=== PATIENT | male | born 1970 | race Caucasian/White ===

== ENCOUNTER 2016-10-16 09:26 | Inpatient (IN) | payer BC, OTHER ==
[~2016-10-16] VITALS: Ht 182.9 cm; Wt 82.7 kg
[2016-10-16] MEDS ORDERED: CHL25 PO (09:41)
[2016-10-16] MEDS ORDERED: ATOR10TA84 PO (09:41)
[2016-10-16] MEDS ORDERED: AMLO-511 PO (09:41)
[2016-10-16] MEDS ORDERED: AZIT250T6 PO (09:41)
[2016-10-16] MEDS ORDERED: ABAC1TAB15 PO (09:41)
[2016-10-16] MEDS ORDERED: FLUC150T66 PO (09:41)
[2016-10-16] MEDS ORDERED: ACETAMINOPHEN 500 MG TABLET PO ONE (10:30)
[2016-10-16 10:32] LABS: APPEARANCE,URINE CLEAR (CLEAR); GLUCOSE, URINE (UA) NEGATIVE (NEGATIVE); KETONES,URINE NEGATIVE (NEGATIVE); LEUKOCYTE ESTERASE ,URINE NEGATIVE (NEGATIVE); OCCULT BLOOD,URINE NEGATIVE (NEGATIVE); PROTEIN,URINE NEGATIVE (NEGATIVE)
[2016-10-16 10:33] LABS: ADD UA MICROSCOPIC NO
[2016-10-16 10:52] LABS: BASOPHILS # (AUTO) 0.02 K/uL (0.00-0.20); BASOPHILS % (AUTO) 0.2 % (0.0-2.0); EOSINOPHILS # (AUTO) 0.02 K/uL (0.00-0.70); EOSINOPHILS % (AUTO) 0.17 % (1.0-6.0); HEMATOCRIT 49.2 % (41-53); HEMOGLOBIN 16.3 g/dL (13.5-17.5); LYMPHOCYTES # (AUTO) 1.3 K/uL (1.0-4.8); LYMPHOCYTES % (AUTO) 11.5 % (22.0-44.0); MEAN CORPUSCULAR HEMOGLOBIN 31.4 pg (26.0-34.0); MEAN CORPUSCULAR HGB CONC 33.1 G/dL (31.0-37.0); MEAN CORPUSCULAR VOLUME 95 fL (80-100); MONOCYTES % (AUTO) 8.8 % (2.0-9.0); NEUTROPHILS # (AUTO) 8.8 K/uL (1.8-7.7); NEUTROPHILS % (AUTO) 79.4 % (40.0-70.0); PLATELET COUNT (AUTO) 248 K/uL (150-450); RED BLOOD CELL COUNT(AUTO) 5.17 MIL/uL (4.50-5.90); RED CELL DISTRIBUTION WIDTH 12.8 % (11.5-14.5); WHITE BLOOD COUNT (AUTO) 11.1 K/uL (4.5-11.0)
[2016-10-16 11:13] LABS: LACTIC ACID 1.3 mmol/L (0.4-2.0)
[2016-10-16 11:18] LABS: B-TYPE NATRIURETIC PEPTIDE < 5 pg/mL (0-100)
[2016-10-16 11:20] LABS: ALANINE AMINOTRANSFERASE 54 U/L (12-78); ALBUMIN 4.2 g/dL (3.4-5.0); ANION GAP 11 mmol/L (8-16); ASPARTATE AMINOTRANSFERASE 25 U/L (15-37); BILIRUBIN,TOTAL 0.6 mg/dL (0.1-1.0); CALCIUM, TOTAL 9.1 mg/dL (8.8-10.5); CARBON DIOXIDE 29 mmol/L (22-29); CHLORIDE 96 mmol/L (98-107); GLOMERULAR FILTR. RATE CALC > 60 mL/min (>60); SODIUM SERUM 136 mmol/L (136-145); TOTAL PROTEIN, SERUM 8.2 g/dL (6.4-8.2); UREA NITROGEN, BLOOD 18 mg/dL (7-18)
[2016-10-16 11:23] LABS: POTASSIUM 2.9 mmol/L (3.5-5.1)
[2016-10-16] MEDS ORDERED: IPRATROPIUM BROMIDE 0.5 MG/2.5 ML NEB SOLUTION NEB ONE (11:30)
[2016-10-16] MEDS ORDERED: ALBUTEROL SULFATE 2.5 MG/0.5 ML NEB SOLUTION NEB ONE (11:30)
[2016-10-16] MEDS ORDERED: POTASSIUM CHL 40 MEQ/D5-0.45NS 1,000 ML IV ONE (11:30)
[2016-10-16] MEDS ORDERED: LEVOFLOXACIN 500 MG TABLET PO ONE (12:00)
[2016-10-16] MEDS ORDERED: IOVERSOL 320 MG/ML 100 ML VIAL ONE (12:03)
[2016-10-16] MEDS ORDERED: SODIUM CHLORIDE 0.9% 100 ML ONE (12:03)
[2016-10-16] MEDS ORDERED: 0.9% SODIUM CHLORIDE 5 ML NEB SOLUTION NEB ONE (12:09)
[2016-10-16 12:23] LABS: INFLUENZA TYPE B NEGATIVE FOR TYPE B (NEGATIVE)
[2016-10-16] MEDS ORDERED: 0.9% SODIUM CHLORIDE 10 ML SYRINGE IVP PRN (13:30)
[2016-10-16] MEDS ORDERED: ACETAMINOPHEN 325 MG TABLET PO PRN (13:30)
[2016-10-16] MEDS ORDERED: MAGNESIUM HYDROXIDE SUSPENSION 30 ML UDCUP PO PRN (14:15)
[2016-10-16] MEDS ORDERED: ZOLPIDEM TARTRATE 5 MG TABLET PO PRN (14:15)
[2016-10-16] MEDS ORDERED: MORPHINE SULFATE 4 MG/ML SYRINGE IVP PRN (14:15)
[2016-10-16] MEDS ORDERED: IPRATROPIUM BROMIDE 0.5 MG/2.5 ML NEB SOLUTION NEB PRN (14:15)
[2016-10-16] MEDS ORDERED: BISACODYL 10 MG RECTAL RECTAL SUPPOSITORY PR PRN (14:15)
[2016-10-16] MEDS ORDERED: ONDANSETRON HCL 4 MG/2 ML VIAL IVP PRN (14:15)
[2016-10-16] MEDS ORDERED: ALBUTEROL SULFATE 2.5 MG/0.5 ML NEB SOLUTION NEB PRN (14:15)
[2016-10-16 14:42] VITALS: BP 122/71
[2016-10-16] MEDS: HEPARIN SODIUM,PORCINE 5,000 UNITS/ML VIAL SQ SCH ×2 (16:00→23:55)
[2016-10-16] MEDS: ACETAMINOPHEN 325 MG TABLET PO PRN ×2 (19:03→23:55)
[2016-10-16 20:10] VITALS: BP 112/51
[2016-10-16] MEDS: DOCUSATE SODIUM 100 MG CAPSULE PO SCH (20:41)
[2016-10-16 23:28] VITALS: BP 123/66
[2016-10-17] MEDS: ACETAMINOPHEN 325 MG TABLET PO PRN ×3 (05:56→14:27)
[2016-10-17 06:24] VITALS: BP 117/74
[2016-10-17 06:48] LABS: BASOPHILS % (AUTO) 0.3 % (0.0-2.0); EOSINOPHILS % (AUTO) 0 % (1.0-6.0); HEMATOCRIT 43.9 % (41-53); HEMOGLOBIN 15.3 g/dL (13.5-17.5); LYMPHOCYTES # (AUTO) 1.9 K/uL (1.0-4.8); LYMPHOCYTES % (AUTO) 13.9 % (22.0-44.0); MEAN CORPUSCULAR HEMOGLOBIN 32.3 pg (26.0-34.0); MEAN CORPUSCULAR HGB CONC 34.9 G/dL (31.0-37.0); MEAN CORPUSCULAR VOLUME 93 fL (80-100); MONOCYTES # (AUTO) 1.6 K/uL (0.1-1.0); NEUTROPHILS # (AUTO) 9.8 K/uL (1.8-7.7); NEUTROPHILS % (AUTO) 73.8 % (40.0-70.0); PLATELET COUNT (AUTO) 216 K/uL (150-450); RED BLOOD CELL COUNT(AUTO) 4.74 MIL/uL (4.50-5.90); RED CELL DISTRIBUTION WIDTH 12.5 % (11.5-14.5); WHITE BLOOD COUNT (AUTO) 13.3 K/uL (4.5-11.0)
[2016-10-17 07:04] LABS: ALANINE AMINOTRANSFERASE 37 U/L (12-78); ALBUMIN 3.7 g/dL (3.4-5.0); ANION GAP 7 mmol/L (8-16); ASPARTATE AMINOTRANSFERASE 18 U/L (15-37); BILIRUBIN,TOTAL 0.5 mg/dL (0.1-1.0); CALCIUM, TOTAL 8.5 mg/dL (8.8-10.5); CARBON DIOXIDE 29 mmol/L (22-29); CHLORIDE 95 mmol/L (98-107); CREATININE 1.02 mg/dL (0.60-1.30); GLOMERULAR FILTR. RATE CALC > 60 mL/min (>60); SODIUM SERUM 131 mmol/L (136-145); TOTAL PROTEIN, SERUM 7.4 g/dL (6.4-8.2); UREA NITROGEN, BLOOD 17 mg/dL (7-18)
[2016-10-17 07:14] LABS: POTASSIUM 2.6 mmol/L (3.5-5.1)
[2016-10-17 07:24] VITALS: BP 141/84
[2016-10-17] MEDS: AmLODIPine BESYLATE 5 MG TABLET PO SCH (08:55)
[2016-10-17] MEDS: ABACAVIR PO SCH (08:55)
[2016-10-17] MEDS: ATORVASTATIN CALCIUM 10 MG TABLET PO SCH (08:55)
[2016-10-17] MEDS: LAMIVUDINE PO SCH (08:55)
[2016-10-17] MEDS: CHLORTHALIDONE 25 MG TABLET PO SCH (08:55)
[2016-10-17] MEDS: DOLUTEGRAVIR PO SCH (08:55)
[2016-10-17] MEDS: HEPARIN SODIUM,PORCINE 5,000 UNITS/ML VIAL SQ SCH ×3 (08:56→23:19)
[2016-10-17] MEDS: DOCUSATE SODIUM 100 MG CAPSULE PO SCH ×2 (08:56→21:19)
[2016-10-17] MEDS: PANTOPRAZOLE SODIUM 40 MG/VIAL IVP SCH (08:56)
[2016-10-17 09:15] LABS: LYMPHS % FOR CD4 COUNT 20 %; WBC FOR CD4 COUNT 10.1 x10E3/uL (3.4-10.8)
[2016-10-17] MEDS ORDERED: SODIUM CHLORIDE 0.9% 1,000 ML IV ONE (09:26)
[2016-10-17] MEDS: PIPERACILLIN/TAZO 3.375 GM/D5W 50 ML IV SCH ×3 (09:28→21:19)
[2016-10-17] MEDS: POTASSIUM CHL 10 MEQ/WATER 50 ML IV PRN ×4 (10:44→14:53)
[2016-10-17 11:18] VITALS: BP 110/68
[2016-10-17 15:40] VITALS: BP 128/65
[2016-10-17] MEDS: HYDROCODONE/ACETAMINOPHEN 5-325 MG TABLET PO PRN ×2 (15:45→21:33)
[2016-10-17] MEDS: SODIUM CHLORIDE 0.9% 1,000 ML IV SCH (15:49)
[2016-10-17] MEDS: POTASSIUM CHLORIDE 20 MEQ ER TABLET PO PRN (19:34)
[2016-10-17 20:02] VITALS: BP 133/75
[2016-10-17] MEDS ORDERED: VANCOMYCIN HCL 1.5 GM in DEXTROSE 5%-WATER 250 ML IV ONE (23:00)
[2016-10-18] VITALS (7 sets, daily range): BP systolic 107–138; BP diastolic 62–83
[2016-10-18] MEDS: POTASSIUM CHLORIDE 20 MEQ ER TABLET PO PRN ×3 (00:33→16:58)
[2016-10-18] MEDS: ACYCLOVIR 800 MG in DEXTROSE 5%-WATER 150 ML IV SCH ×3 (01:22→20:17)
[2016-10-18] MEDS: SODIUM CHLORIDE 0.9% 1,000 ML IV SCH ×2 (01:23→15:58)
[2016-10-18] MEDS: CefTRIAXone SODIUM 2 GM in DEXTROSE 5%-WATER 50 ML IV SCH ×2 (02:36→15:54)
[2016-10-18] MEDS: ACETAMINOPHEN 325 MG TABLET PO PRN (05:03)
[2016-10-18 07:05] LABS: BASOPHILS % (AUTO) 0.2 % (0.0-2.0); EOSINOPHILS % (AUTO) 0 % (1.0-6.0); HEMATOCRIT 42.5 % (41-53); HEMOGLOBIN 14.9 g/dL (13.5-17.5); LYMPHOCYTES # (AUTO) 1.6 K/uL (1.0-4.8); LYMPHOCYTES % (AUTO) 11.3 % (22.0-44.0); MEAN CORPUSCULAR HEMOGLOBIN 32.5 pg (26.0-34.0); MEAN CORPUSCULAR VOLUME 93 fL (80-100); MONOCYTES # (AUTO) 1.5 K/uL (0.1-1.0); MONOCYTES % (AUTO) 10.5 % (2.0-9.0); PLATELET COUNT (AUTO) 185 K/uL (150-450); RED BLOOD CELL COUNT(AUTO) 4.57 MIL/uL (4.50-5.90); RED CELL DISTRIBUTION WIDTH 12.2 % (11.5-14.5); WHITE BLOOD COUNT (AUTO) 14.1 K/uL (4.5-11.0)
[2016-10-18 07:20] LABS: ALANINE AMINOTRANSFERASE 40 U/L (12-78); ALBUMIN 3.2 g/dL (3.4-5.0); ANION GAP 6 mmol/L (8-16); ASPARTATE AMINOTRANSFERASE 24 U/L (15-37); BILIRUBIN,TOTAL 0.4 mg/dL (0.1-1.0); CALCIUM, TOTAL 8.3 mg/dL (8.8-10.5); CARBON DIOXIDE 31 mmol/L (22-29); CHLORIDE 92 mmol/L (98-107); CREATININE 0.88 mg/dL (0.60-1.30); GLOMERULAR FILTR. RATE CALC > 60 mL/min (>60); SODIUM SERUM 129 mmol/L (136-145); UREA NITROGEN, BLOOD 10 mg/dL (7-18)
[2016-10-18] MEDS: HEPARIN SODIUM,PORCINE 5,000 UNITS/ML VIAL SQ SCH ×2 (08:44→16:58)
[2016-10-18] MEDS: VANCOMYCIN HCL 1.25 GM in DEXTROSE 5%-WATER 250 ML IV SCH ×3 (08:44→22:59)
[2016-10-18] MEDS: PANTOPRAZOLE SODIUM 40 MG/VIAL IVP SCH (08:45)
[2016-10-18] MEDS: DOCUSATE SODIUM 100 MG CAPSULE PO SCH ×2 (08:45→20:22)
[2016-10-18] MEDS: ATORVASTATIN CALCIUM 10 MG TABLET PO SCH ×2 (08:45→09:00)
[2016-10-18] MEDS: HYDROCODONE/ACETAMINOPHEN 5-325 MG TABLET PO PRN (08:45)
[2016-10-18] MEDS: AmLODIPine BESYLATE 5 MG TABLET PO SCH (08:45)
[2016-10-18] MEDS: LAMIVUDINE PO SCH (08:46)
[2016-10-18] MEDS: CHLORTHALIDONE 25 MG TABLET PO SCH (08:46)
[2016-10-18] MEDS: DOLUTEGRAVIR PO SCH (08:46)
[2016-10-18] MEDS: ABACAVIR PO SCH (08:46)
[2016-10-18] MEDS ORDERED: GADOBUTROL 1 MMOL/ML 10 ML VIAL IVP ONE (14:15)
[2016-10-19] MEDS: HEPARIN SODIUM,PORCINE 5,000 UNITS/ML VIAL SQ SCH ×3 (00:27→17:05)
[2016-10-19] MEDS: ACETAMINOPHEN 325 MG TABLET PO PRN (00:27)
[2016-10-19] MEDS: CefTRIAXone SODIUM 2 GM in DEXTROSE 5%-WATER 50 ML IV SCH ×2 (01:29→17:03)
[2016-10-19 01:31] LABS: ABSOLUTE CD4 COUNT 528 /uL (359-1519); PERCENT CD4 CELLS 26.4 % (30.8-58.5)
[2016-10-19] MEDS: ACYCLOVIR 800 MG in DEXTROSE 5%-WATER 150 ML IV SCH ×3 (02:45→17:58)
[2016-10-19 04:54] VITALS: BP 103/63
[2016-10-19 06:07] LABS: BASOPHILS # (AUTO) 0.03 K/uL (0.00-0.20); BASOPHILS % (AUTO) 0.4 % (0.0-2.0); EOSINOPHILS # (AUTO) 0.01 K/uL (0.00-0.70); EOSINOPHILS % (AUTO) 0.06 % (1.0-6.0); HEMATOCRIT 45.4 % (41-53); HEMOGLOBIN 14.9 g/dL (13.5-17.5); LYMPHOCYTES # (AUTO) 2.6 K/uL (1.0-4.8); LYMPHOCYTES % (AUTO) 29.5 % (22.0-44.0); MEAN CORPUSCULAR HEMOGLOBIN 31.6 pg (26.0-34.0); MEAN CORPUSCULAR HGB CONC 32.8 G/dL (31.0-37.0); MEAN CORPUSCULAR VOLUME 96 fL (80-100); MONOCYTES # (AUTO) 1.4 K/uL (0.1-1.0); MONOCYTES % (AUTO) 15.4 % (2.0-9.0); NEUTROPHILS # (AUTO) 4.8 K/uL (1.8-7.7); NEUTROPHILS % (AUTO) 54.6 % (40.0-70.0); PLATELET COUNT (AUTO) 221 K/uL (150-450); RED BLOOD CELL COUNT(AUTO) 4.71 MIL/uL (4.50-5.90); RED CELL DISTRIBUTION WIDTH 12.7 % (11.5-14.5); WHITE BLOOD COUNT (AUTO) 8.7 K/uL (4.5-11.0)
[2016-10-19 07:02] VITALS: BP 107/59
[2016-10-19 07:10] LABS: ALANINE AMINOTRANSFERASE 56 U/L (12-78); ALBUMIN 3.3 g/dL (3.4-5.0); ANION GAP 9 mmol/L (8-16); ASPARTATE AMINOTRANSFERASE 34 U/L (15-37); BILIRUBIN,TOTAL 0.3 mg/dL (0.1-1.0); CALCIUM, TOTAL 8.8 mg/dL (8.8-10.5); CARBON DIOXIDE 32 mmol/L (22-29); CHLORIDE 97 mmol/L (98-107); CREATININE 0.97 mg/dL (0.60-1.30); GLOMERULAR FILTR. RATE CALC > 60 mL/min (>60); POTASSIUM 3.4 mmol/L (3.5-5.1); SODIUM SERUM 138 mmol/L (136-145); TOTAL PROTEIN, SERUM 7.4 g/dL (6.4-8.2); UREA NITROGEN, BLOOD 10 mg/dL (7-18)
[2016-10-19] MEDS: AmLODIPine BESYLATE 5 MG TABLET PO SCH (09:00)
[2016-10-19] MEDS: CHLORTHALIDONE 25 MG TABLET PO SCH (09:08)
[2016-10-19] MEDS: DOLUTEGRAVIR PO SCH (09:08)
[2016-10-19] MEDS: ATORVASTATIN CALCIUM 10 MG TABLET PO SCH (09:08)
[2016-10-19] MEDS: DOCUSATE SODIUM 100 MG CAPSULE PO SCH ×2 (09:08→21:00)
[2016-10-19] MEDS: POTASSIUM CHLORIDE 20 MEQ ER TABLET PO PRN ×2 (09:08→15:22)
[2016-10-19] MEDS: LAMIVUDINE PO SCH (09:08)
[2016-10-19] MEDS: ABACAVIR PO SCH (09:08)
[2016-10-19] MEDS: PANTOPRAZOLE SODIUM 40 MG/VIAL IVP SCH (09:08)
[2016-10-19] MEDS: VANCOMYCIN HCL 1.25 GM in DEXTROSE 5%-WATER 250 ML IV SCH ×2 (09:09→19:52)
[2016-10-19 11:02] VITALS: BP 130/77
[2016-10-19 12:40] VITALS: BP 120/72
[2016-10-19] MEDS ORDERED: VANCOMYCIN HCL 1.25 GM in DEXTROSE 5%-WATER 250 ML IV ONE (13:00)
[2016-10-19 14:32] LABS: ORGANISM ID Not indicated.
[2016-10-19] MEDS: SODIUM CHLORIDE 0.9% 1,000 ML IV SCH ×2 (14:39→16:00)
[2016-10-19 17:13] VITALS: BP 135/64
[2016-10-19 20:05] VITALS: BP 115/67
[2016-10-20] MEDS: HEPARIN SODIUM,PORCINE 5,000 UNITS/ML VIAL SQ SCH ×3 (00:06→17:07)
[2016-10-20] MEDS: VANCOMYCIN HCL 1.25 GM in DEXTROSE 5%-WATER 250 ML IV SCH ×4 (00:07→23:43)
[2016-10-20 00:12] VITALS: BP 123/77
[2016-10-20] MEDS: ACYCLOVIR 800 MG in DEXTROSE 5%-WATER 150 ML IV SCH ×3 (02:22→17:19)
[2016-10-20] MEDS: CefTRIAXone SODIUM 2 GM in DEXTROSE 5%-WATER 50 ML IV SCH ×2 (03:38→13:51)
[2016-10-20 03:45] VITALS: BP 114/70
[2016-10-20 07:00] VITALS: BP 132/83
[2016-10-20 07:37] LABS: BASOPHILS # (AUTO) 0.04 K/uL (0.00-0.20); BASOPHILS % (AUTO) 0.5 % (0.0-2.0); EOSINOPHILS # (AUTO) 0.05 K/uL (0.00-0.70); EOSINOPHILS % (AUTO) 0.51 % (1.0-6.0); HEMATOCRIT 43.8 % (41-53); HEMOGLOBIN 14.5 g/dL (13.5-17.5); LYMPHOCYTES % (AUTO) 22.8 % (22.0-44.0); MEAN CORPUSCULAR HEMOGLOBIN 31.7 pg (26.0-34.0); MEAN CORPUSCULAR HGB CONC 33.2 G/dL (31.0-37.0); MEAN CORPUSCULAR VOLUME 96 fL (80-100); MONOCYTES % (AUTO) 10.6 % (2.0-9.0); NEUTROPHILS # (AUTO) 5.9 K/uL (1.8-7.7); NEUTROPHILS % (AUTO) 65.7 % (40.0-70.0); PLATELET COUNT (AUTO) 248 K/uL (150-450); RED BLOOD CELL COUNT(AUTO) 4.59 MIL/uL (4.50-5.90); RED CELL DISTRIBUTION WIDTH 12.9 % (11.5-14.5)
[2016-10-20 07:47] LABS: ALANINE AMINOTRANSFERASE 72 U/L (12-78); ALBUMIN 3.1 g/dL (3.4-5.0); ANION GAP 8 mmol/L (8-16); ASPARTATE AMINOTRANSFERASE 34 U/L (15-37); BILIRUBIN,TOTAL 0.3 mg/dL (0.1-1.0); CALCIUM, TOTAL 8.8 mg/dL (8.8-10.5); CARBON DIOXIDE 29 mmol/L (22-29); CHLORIDE 99 mmol/L (98-107); CREATININE 0.84 mg/dL (0.60-1.30); GLOMERULAR FILTR. RATE CALC > 60 mL/min (>60); POTASSIUM 3.4 mmol/L (3.5-5.1); SODIUM SERUM 136 mmol/L (136-145); TOTAL PROTEIN, SERUM 7.2 g/dL (6.4-8.2); UREA NITROGEN, BLOOD 10 mg/dL (7-18)
[2016-10-20] MEDS: CHLORTHALIDONE 25 MG TABLET PO SCH ×2 (09:00→09:25)
[2016-10-20] MEDS: ABACAVIR PO SCH (09:24)
[2016-10-20] MEDS: LAMIVUDINE PO SCH (09:24)
[2016-10-20] MEDS: PANTOPRAZOLE SODIUM 40 MG/VIAL IVP SCH (09:24)
[2016-10-20] MEDS: DOLUTEGRAVIR PO SCH (09:24)
[2016-10-20] MEDS: ATORVASTATIN CALCIUM 10 MG TABLET PO SCH (09:25)
[2016-10-20] MEDS: DOCUSATE SODIUM 100 MG CAPSULE PO SCH ×2 (09:25→21:00)
[2016-10-20] MEDS: AmLODIPine BESYLATE 5 MG TABLET PO SCH (09:25)
[2016-10-20 11:50] VITALS: BP 127/78
[2016-10-20] MEDS: SODIUM CHLORIDE 0.9% 1,000 ML IV SCH (13:29)
[2016-10-20 15:00] VITALS: BP 131/73
[2016-10-20] MEDS: POTASSIUM CHLORIDE 20 MEQ ER TABLET PO PRN (18:22)
[2016-10-20] MEDS: HYDROCODONE/ACETAMINOPHEN 5-325 MG TABLET PO PRN (19:08)
[2016-10-20 20:08] VITALS: BP 130/78
[2016-10-21 00:56] VITALS: BP 132/72
[2016-10-21] MEDS: ACYCLOVIR 800 MG in DEXTROSE 5%-WATER 150 ML IV SCH ×3 (00:59→18:19)
[2016-10-21] MEDS: HEPARIN SODIUM,PORCINE 5,000 UNITS/ML VIAL SQ SCH ×4 (00:59→23:52)
[2016-10-21] MEDS: CefTRIAXone SODIUM 2 GM in DEXTROSE 5%-WATER 50 ML IV SCH ×2 (02:25→15:00)
[2016-10-21] MEDS: HYDROCODONE/ACETAMINOPHEN 5-325 MG TABLET PO PRN ×2 (03:55→10:45)
[2016-10-21 06:05] LABS: BASOPHILS # (AUTO) 0.05 K/uL (0.00-0.20); BASOPHILS % (AUTO) 0.4 % (0.0-2.0); EOSINOPHILS # (AUTO) 0.06 K/uL (0.00-0.70); EOSINOPHILS % (AUTO) 0.52 % (1.0-6.0); HEMATOCRIT 42.6 % (41-53); HEMOGLOBIN 14.1 g/dL (13.5-17.5); LYMPHOCYTES # (AUTO) 1.6 K/uL (1.0-4.8); LYMPHOCYTES % (AUTO) 14.5 % (22.0-44.0); MEAN CORPUSCULAR HEMOGLOBIN 31.3 pg (26.0-34.0); MEAN CORPUSCULAR HGB CONC 33.1 G/dL (31.0-37.0); MEAN CORPUSCULAR VOLUME 95 fL (80-100); MONOCYTES # (AUTO) 1.2 K/uL (0.1-1.0); MONOCYTES % (AUTO) 10.4 % (2.0-9.0); NEUTROPHILS # (AUTO) 8.4 K/uL (1.8-7.7); NEUTROPHILS % (AUTO) 74.1 % (40.0-70.0); PLATELET COUNT (AUTO) 282 K/uL (150-450); RED CELL DISTRIBUTION WIDTH 12.6 % (11.5-14.5); WHITE BLOOD COUNT (AUTO) 11.3 K/uL (4.5-11.0)
[2016-10-21 06:28] LABS: ALANINE AMINOTRANSFERASE 80 U/L (12-78); ALBUMIN 3.2 g/dL (3.4-5.0); ANION GAP 6 mmol/L (8-16); ASPARTATE AMINOTRANSFERASE 33 U/L (15-37); BILIRUBIN,TOTAL 0.3 mg/dL (0.1-1.0); CALCIUM, TOTAL 8.6 mg/dL (8.8-10.5); CARBON DIOXIDE 29 mmol/L (22-29); CHLORIDE 98 mmol/L (98-107); CREATININE 0.99 mg/dL (0.60-1.30); GLOMERULAR FILTR. RATE CALC > 60 mL/min (>60); POTASSIUM 3.6 mmol/L (3.5-5.1); SODIUM SERUM 133 mmol/L (136-145); TOTAL PROTEIN, SERUM 7.2 g/dL (6.4-8.2)
[2016-10-21] MEDS: VANCOMYCIN HCL 1.25 GM in DEXTROSE 5%-WATER 250 ML IV SCH ×3 (06:58→23:55)
[2016-10-21 07:07] LABS: UREA NITROGEN, BLOOD 10 mg/dL (7-18)
[2016-10-21 08:00] VITALS: BP 118/74
[2016-10-21] MEDS: DOCUSATE SODIUM 100 MG CAPSULE PO SCH ×3 (09:00→20:01)
[2016-10-21] MEDS: LAMIVUDINE PO SCH (09:17)
[2016-10-21] MEDS: ATORVASTATIN CALCIUM 10 MG TABLET PO SCH (09:17)
[2016-10-21] MEDS: ABACAVIR PO SCH (09:17)
[2016-10-21] MEDS: DOLUTEGRAVIR PO SCH (09:17)
[2016-10-21] MEDS: AmLODIPine BESYLATE 5 MG TABLET PO SCH (09:18)
[2016-10-21] MEDS: PANTOPRAZOLE SODIUM 40 MG/VIAL IVP SCH (09:19)
[2016-10-21] MEDS: SODIUM CHLORIDE 0.9% 1,000 ML IV SCH (10:55)
[2016-10-21 11:01] VITALS: BP 138/74
[2016-10-21] MEDS: ACETAMINOPHEN 325 MG TABLET PO PRN ×3 (14:54→23:52)
[2016-10-21 15:00] VITALS: BP 142/73
[2016-10-21 16:23] VITALS: BP 132/58
[2016-10-21 20:00] VITALS: BP 117/61
[2016-10-22] VITALS (7 sets, daily range): BP systolic 123–138; BP diastolic 64–87
[2016-10-22] MEDS: SODIUM CHLORIDE 0.9% 1,000 ML IV SCH ×2 (00:05→14:00)
[2016-10-22] MEDS: ACYCLOVIR 800 MG in DEXTROSE 5%-WATER 150 ML IV SCH ×3 (02:08→17:54)
[2016-10-22] MEDS: CefTRIAXone SODIUM 2 GM in DEXTROSE 5%-WATER 50 ML IV SCH ×2 (03:10→14:03)
[2016-10-22 06:26] LABS: BASOPHILS % (AUTO) 0.4 % (0.0-2.0); EOSINOPHILS % (AUTO) 0.2 % (1.0-6.0); HEMATOCRIT 41.8 % (41-53); HEMOGLOBIN 14.4 g/dL (13.5-17.5); LYMPHOCYTES # (AUTO) 2.3 K/uL (1.0-4.8); LYMPHOCYTES % (AUTO) 16.2 % (22.0-44.0); MEAN CORPUSCULAR HEMOGLOBIN 32.2 pg (26.0-34.0); MEAN CORPUSCULAR HGB CONC 34.3 G/dL (31.0-37.0); MEAN CORPUSCULAR VOLUME 94 fL (80-100); MONOCYTES % (AUTO) 14.3 % (2.0-9.0); NEUTROPHILS # (AUTO) 9.7 K/uL (1.8-7.7); NEUTROPHILS % (AUTO) 68.9 % (40.0-70.0); PLATELET COUNT (AUTO) 299 K/uL (150-450); RED BLOOD CELL COUNT(AUTO) 4.45 MIL/uL (4.50-5.90); RED CELL DISTRIBUTION WIDTH 12.5 % (11.5-14.5)
[2016-10-22 06:32] LABS: PROTHROMBIN TIME 10.7 SEC (9.4-11.6)
[2016-10-22 06:50] LABS: ALANINE AMINOTRANSFERASE 84 U/L (12-78); ALBUMIN 3.2 g/dL (3.4-5.0); ANION GAP 3 mmol/L (8-16); ASPARTATE AMINOTRANSFERASE 33 U/L (15-37); BILIRUBIN,TOTAL 0.2 mg/dL (0.1-1.0); CALCIUM, TOTAL 8.9 mg/dL (8.8-10.5); CARBON DIOXIDE 28 mmol/L (22-29); CHLORIDE 98 mmol/L (98-107); CREATININE 1.14 mg/dL (0.60-1.30); GLOMERULAR FILTR. RATE CALC > 60 mL/min (>60); POTASSIUM 4.2 mmol/L (3.5-5.1); SODIUM SERUM 129 mmol/L (136-145); TOTAL PROTEIN, SERUM 7.6 g/dL (6.4-8.2); UREA NITROGEN, BLOOD 9 mg/dL (7-18)
[2016-10-22] MEDS: LAMIVUDINE PO SCH (08:06)
[2016-10-22] MEDS: ABACAVIR PO SCH (08:06)
[2016-10-22] MEDS: PANTOPRAZOLE SODIUM 40 MG/VIAL IVP SCH (08:06)
[2016-10-22] MEDS: DOLUTEGRAVIR PO SCH (08:06)
[2016-10-22] MEDS: ATORVASTATIN CALCIUM 10 MG TABLET PO SCH (08:07)
[2016-10-22] MEDS: ACETAMINOPHEN 325 MG TABLET PO PRN ×3 (08:07→19:01)
[2016-10-22] MEDS: HEPARIN SODIUM,PORCINE 5,000 UNITS/ML VIAL SQ SCH ×3 (08:07→23:13)
[2016-10-22] MEDS: AmLODIPine BESYLATE 5 MG TABLET PO SCH (08:08)
[2016-10-22] MEDS: DOCUSATE SODIUM 100 MG CAPSULE PO SCH ×2 (08:12→21:00)
[2016-10-22] MEDS: CHLORTHALIDONE 25 MG TABLET PO SCH (08:13)
[2016-10-22] MEDS: VANCOMYCIN HCL 1.25 GM in DEXTROSE 5%-WATER 250 ML IV SCH (08:50)
[2016-10-22] MEDS ORDERED: FentaNYL CITRATE-PF 100 MCG/2 ML VIAL ONE (11:05)
[2016-10-22] MEDS ORDERED: MIDAZOLAM HCL 2 MG/2 ML VIAL ONE (11:05)
[2016-10-22] MEDS ORDERED: LIDOCAINE HCL/PF 1% 30 ML VIAL ONE (11:05)
[2016-10-22] MEDS ORDERED: SODIUM CHLORIDE 0.9% 100 ML ONE (14:39)
[2016-10-22] MEDS ORDERED: IOVERSOL 320 MG/ML 100 ML VIAL ONE (14:39)
[2016-10-22] MEDS: VANCOMYCIN HCL 1.5 GM in DEXTROSE 5%-WATER 250 ML IV SCH ×2 (15:00→23:09)
[2016-10-22 15:48] LABS: GLUCOSE, CSF 74 mg/dL (50-80); TOTAL PROTEIN, CSF 90 mg/dL (15-45)
[2016-10-22 18:22] LABS: APPEARANCE,CSF BLOODY (CLEAR); COLOR,CSF RED (COLORLESS)
[2016-10-22] MEDS: AMPICILLIN SODIUM/SULBACTAM NA 3 GM in SODIUM CHLORIDE 0.9% 100 ML IV SCH (22:07)
[2016-10-23] VITALS (7 sets, daily range): BP systolic 104–141; BP diastolic 70–83
[2016-10-23] MEDS: SODIUM CHLORIDE 0.9% 1,000 ML IV SCH ×3 (00:09→20:00)
[2016-10-23] MEDS: AMPICILLIN SODIUM/SULBACTAM NA 3 GM in SODIUM CHLORIDE 0.9% 100 ML IV SCH ×4 (03:46→22:16)
[2016-10-23] MEDS: ACETAMINOPHEN 325 MG TABLET PO PRN ×3 (04:15→19:02)
[2016-10-23 06:45] LABS: BASOPHILS % (AUTO) 0.3 % (0.0-2.0); EOSINOPHILS % (AUTO) 1.2 % (1.0-6.0); HEMATOCRIT 39.4 % (41-53); HEMOGLOBIN 13.7 g/dL (13.5-17.5); LYMPHOCYTES # (AUTO) 1.4 K/uL (1.0-4.8); LYMPHOCYTES % (AUTO) 13.6 % (22.0-44.0); MEAN CORPUSCULAR HEMOGLOBIN 32.6 pg (26.0-34.0); MEAN CORPUSCULAR HGB CONC 34.7 G/dL (31.0-37.0); MEAN CORPUSCULAR VOLUME 94 fL (80-100); MONOCYTES # (AUTO) 1.1 K/uL (0.1-1.0); MONOCYTES % (AUTO) 10.8 % (2.0-9.0); NEUTROPHILS # (AUTO) 7.7 K/uL (1.8-7.7); NEUTROPHILS % (AUTO) 74.1 % (40.0-70.0); PLATELET COUNT (AUTO) 329 K/uL (150-450); RED BLOOD CELL COUNT(AUTO) 4.19 MIL/uL (4.50-5.90); RED CELL DISTRIBUTION WIDTH 12.8 % (11.5-14.5); WHITE BLOOD COUNT (AUTO) 10.3 K/uL (4.5-11.0)
[2016-10-23] MEDS: VANCOMYCIN HCL 1.5 GM in DEXTROSE 5%-WATER 250 ML IV SCH ×2 (07:01→14:50)
[2016-10-23 07:06] LABS: ALANINE AMINOTRANSFERASE 80 U/L (12-78); ALBUMIN 2.9 g/dL (3.4-5.0); ANION GAP 6 mmol/L (8-16); ASPARTATE AMINOTRANSFERASE 34 U/L (15-37); BILIRUBIN,TOTAL 0.3 mg/dL (0.1-1.0); CALCIUM, TOTAL 8.7 mg/dL (8.8-10.5); CARBON DIOXIDE 28 mmol/L (22-29); CHLORIDE 104 mmol/L (98-107); CREATININE 1.02 mg/dL (0.60-1.30); GLOMERULAR FILTR. RATE CALC > 60 mL/min (>60); POTASSIUM 4.4 mmol/L (3.5-5.1); SODIUM SERUM 138 mmol/L (136-145); TOTAL PROTEIN, SERUM 7.1 g/dL (6.4-8.2); UREA NITROGEN, BLOOD 8 mg/dL (7-18)
[2016-10-23] MEDS ORDERED: FLUCONAZOLE 150 MG TABLET PO SCH (09:00)
[2016-10-23] MEDS: CHLORTHALIDONE 25 MG TABLET PO SCH (09:00)
[2016-10-23] MEDS: HEPARIN SODIUM,PORCINE 5,000 UNITS/ML VIAL SQ SCH ×2 (09:18→17:23)
[2016-10-23] MEDS: ATORVASTATIN CALCIUM 10 MG TABLET PO SCH (09:18)
[2016-10-23] MEDS: DOCUSATE SODIUM 100 MG CAPSULE PO SCH ×2 (09:18→20:20)
[2016-10-23] MEDS: PANTOPRAZOLE SODIUM 40 MG/VIAL IVP SCH (09:18)
[2016-10-23] MEDS: DOLUTEGRAVIR PO SCH (09:19)
[2016-10-23] MEDS: LAMIVUDINE PO SCH (09:19)
[2016-10-23] MEDS: ABACAVIR PO SCH (09:19)
[2016-10-23] MEDS: AmLODIPine BESYLATE 5 MG TABLET PO SCH (09:20)
[2016-10-24] MEDS: HEPARIN SODIUM,PORCINE 5,000 UNITS/ML VIAL SQ SCH ×4 (00:26→23:11)
[2016-10-24] MEDS: VANCOMYCIN HCL 1.5 GM in DEXTROSE 5%-WATER 250 ML IV SCH ×4 (00:26→23:11)
[2016-10-24] MEDS: AMPICILLIN SODIUM/SULBACTAM NA 3 GM in SODIUM CHLORIDE 0.9% 100 ML IV SCH ×4 (04:04→21:26)
[2016-10-24] MEDS: ACETAMINOPHEN 325 MG TABLET PO PRN (04:06)
[2016-10-24 04:11] VITALS: BP 147/85
[2016-10-24 07:47] LABS: ANION GAP 9 mmol/L (8-16); CALCIUM, TOTAL 8.2 mg/dL (8.8-10.5); CARBON DIOXIDE 25 mmol/L (22-29); CHLORIDE 102 mmol/L (98-107); CREATININE 0.86 mg/dL (0.60-1.30); GLOMERULAR FILTR. RATE CALC > 60 mL/min (>60); POTASSIUM 3.6 mmol/L (3.5-5.1); SODIUM SERUM 136 mmol/L (136-145); UREA NITROGEN, BLOOD 12 mg/dL (7-18)
[2016-10-24] MEDS: HYDROCODONE/ACETAMINOPHEN 5-325 MG TABLET PO PRN ×2 (08:01→16:12)
[2016-10-24] MEDS: DOCUSATE SODIUM 100 MG CAPSULE PO SCH ×3 (08:01→20:35)
[2016-10-24] MEDS: AmLODIPine BESYLATE 5 MG TABLET PO SCH (08:01)
[2016-10-24] MEDS: PANTOPRAZOLE SODIUM 40 MG/VIAL IVP SCH (08:01)
[2016-10-24] MEDS: CHLORTHALIDONE 25 MG TABLET PO SCH (08:02)
[2016-10-24] MEDS: LAMIVUDINE PO SCH (08:02)
[2016-10-24] MEDS: ABACAVIR PO SCH (08:02)
[2016-10-24] MEDS: ATORVASTATIN CALCIUM 10 MG TABLET PO SCH (08:02)
[2016-10-24] MEDS: DOLUTEGRAVIR PO SCH (08:02)
[2016-10-24 08:07] VITALS: BP 141/84
[2016-10-24] MEDS: SODIUM CHLORIDE 0.9% 1,000 ML IV SCH ×2 (10:57→16:06)
[2016-10-24 11:27] VITALS: BP 120/79
[2016-10-24 16:06] VITALS: BP 133/72
[2016-10-24 19:44] VITALS: BP 141/73
[2016-10-24 23:27] LABS: HERPES SIMPLEX VIRUS-1 BY PCR Negative (Negative); HERPES SIMPLEX VIRUS-2 BY PCR Negative (Negative)
[2016-10-25] VITALS: BP 130/80
[2016-10-25] MEDS: HYDROCODONE/ACETAMINOPHEN 5-325 MG TABLET PO PRN (03:41)
[2016-10-25 03:49] VITALS: BP 135/83
[2016-10-25] MEDS: AMPICILLIN SODIUM/SULBACTAM NA 3 GM in SODIUM CHLORIDE 0.9% 100 ML IV SCH ×3 (04:19→15:48)
[2016-10-25] MEDS: VANCOMYCIN HCL 1.5 GM in DEXTROSE 5%-WATER 250 ML IV SCH ×2 (06:09→15:00)
[2016-10-25 07:43] VITALS: BP 137/77
[2016-10-25 08:29] LABS: ANION GAP 9 mmol/L (8-16); CALCIUM, TOTAL 8.7 mg/dL (8.8-10.5); CARBON DIOXIDE 28 mmol/L (22-29); CHLORIDE 104 mmol/L (98-107); CREATININE 0.93 mg/dL (0.60-1.30); GLOMERULAR FILTR. RATE CALC > 60 mL/min (>60); POTASSIUM 3.7 mmol/L (3.5-5.1); SODIUM SERUM 141 mmol/L (136-145); UREA NITROGEN, BLOOD 8 mg/dL (7-18)
[2016-10-25] MEDS: HEPARIN SODIUM,PORCINE 5,000 UNITS/ML VIAL SQ SCH ×2 (08:51→15:48)
[2016-10-25] MEDS: PANTOPRAZOLE SODIUM 40 MG/VIAL IVP SCH (08:51)
[2016-10-25] MEDS: CHLORTHALIDONE 25 MG TABLET PO SCH (08:51)
[2016-10-25] MEDS: DOCUSATE SODIUM 100 MG CAPSULE PO SCH (08:52)
[2016-10-25] MEDS: LAMIVUDINE PO SCH (08:52)
[2016-10-25] MEDS: ABACAVIR PO SCH (08:52)
[2016-10-25] MEDS: DOLUTEGRAVIR PO SCH (08:52)
[2016-10-25] MEDS: SODIUM CHLORIDE 0.9% 1,000 ML IV SCH ×2 (08:53→12:00)
[2016-10-25] MEDS: ATORVASTATIN CALCIUM 10 MG TABLET PO SCH (08:58)
[2016-10-25] MEDS: AmLODIPine BESYLATE 5 MG TABLET PO SCH (08:58)
[2016-10-25 10:20] LABS: EPSTEIN-BARR TO EARLY(D)AG-IGG 21.7 U/mL (0.0-8.9); EPSTEIN-BARR VIRUS CAPSID IGM <36.0 U/mL (0.0-35.9)
[2016-10-25 11:06] VITALS: BP 145/84
[2016-10-25] MEDS: ACETAMINOPHEN 325 MG TABLET PO PRN (11:34)
[2016-10-25 11:53] LABS: COCCIDIOIDES BY CF(UCDAVIS) Negative; COCCIDIOIDES INTERP.(UCDAVIS) Comment:
[2016-10-25 15:22] VITALS: BP 147/77
[2016-10-25] MEDS ORDERED: ACETAMINOPHEN 650 MG/20.3 ML SOLUTION UDCUP PO PRN (15:30)
[2016-10-25] MEDS ORDERED: AMOX TR/POT CLAV 875 MG/125 MG TABLET PO SCH (21:00)
== END 2016-10-25 16:15 | disposition home or self-care (01) | DRG 975 ==
LOC: EMS 09:29 → 6N 12:31 → 4E 10-19 12:51 → 6N 10-23 19:11
PROVIDERS: ADMIT Hospitalist; ATTEND Hospitalist
PROC: 009U3ZX Drainage of Spinal Canal, Percutaneous Approach, Diagnostic (ICD-10-PCS; principal; 2016-10-22)
PROC: B01B1ZZ Fluoroscopy of Spinal Cord using Low Osmolar Contrast (ICD-10-PCS; 2016-10-22)
DX: A41.9 Sepsis, unspecified organism (principal); B20 Human immunodeficiency virus [HIV] disease; J98.11 Atelectasis; J18.9 Pneumonia, unspecified organism; I10 Essential (primary) hypertension; E78.00 Pure hypercholesterolemia, unspecified; E87.6 Hypokalemia; R51 Headache; E78.5 Hyperlipidemia, unspecified; H53.149 Visual discomfort, unspecified; J02.9 Acute pharyngitis, unspecified; M79.606 Pain in leg, unspecified; M54.5 Low back pain; E86.0 Dehydration; R09.02 Hypoxemia; Z79.899 Other long term (current) drug therapy; Z90.49 Acquired absence of other specified parts of digestive tract
CPT/HCPCS: 62270; 70450; 70491; 71250; 71260; 72131; 72158; 82945; 83605; 84132; 84145; 84157; 86171; 86308; 86361; 86403; 86663; 86665; 87040; 87070; 87081; 87205; 87430; 87449; 87497; 87529; 87804; 87899; 89051; 93005; 94640; 96365; 99291; A9585; C9113; J0133; J0295; J0696; J1644; J2250; J2405; J2543; J3010; J3370; J3480; J3490; J7030; J7050; J7060

== ENCOUNTER 2016-11-03 07:56 | Emergency (ER) | payer BC ==
[~2016-11-03] VITALS: Ht 182.9 cm; Wt 81.8 kg
[~2016-11-03 07:56] MED LIST: ABAC1TAB15 PO; AMLO-511 PO; ATOR10TA84 PO; AZIT250T6 PO; CHL25 PO; FLUC150T66 PO
[2016-11-03 10:34] VITALS: BP 134/90
== END 2016-11-03 11:49 | disposition home or self-care (01) ==
LOC: EMS 07:58
DX: Z00.00 Encounter for general adult medical examination without abnormal findings (principal); E78.00 Pure hypercholesterolemia, unspecified; I10 Essential (primary) hypertension; Z02.89 Encounter for other administrative examinations
CPT/HCPCS: 99281; 99283